=== PATIENT | male | born 1995 | race Caucasian/White ===

== ENCOUNTER 2016-07-16 10:53 | Emergency (ER) | payer BC, OTHER ==
[~2016-07-16] VITALS: Ht 167.6 cm; Wt 58.3 kg
[2016-07-16 10:58] VITALS: TEMP 36.8; Ht 167.6 cm; Wt 58.3 kg
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
[2016-07-16 11:38] LABS: BASO % 0.2 %; BASO ABS # 0.02 K/uL (0-0.2); COMPLETE YES; EOS % 0.8 %; HEMATOCRIT 43.1 % (42-52); IG% 0.3 %; LYMPH % 17.2 %; LYMPH ABS # 2.06 K/uL (1.2-3.4); MEAN CELL VOLUME 86.7 fL (80-100); MEAN CORPUSCULAR HGB CONC 35.7 g/dl (32-36); MEAN PLATELET VOLUME 9.3 fL (7.4-10.4); NEUT % 75.5 %; PLATELET COUNT 230 K/uL (130-400); RED BLOOD COUNT 4.97 M/uL (4.7-6.1); WHITE BLOOD COUNT 11.95 K/uL (4.8-10.8)
[2016-07-16] MEDS ORDERED: LORAZEPAM 0.5 MG TAB ONE (11:53)
[2016-07-16 11:57] LABS: BUN/CREATININE RATIO 17.2 (10-20); CALCIUM 9.4 mg/dl (8.5-10.1); CREATININE 0.98 mg/dl (0.60-1.40); POTASSIUM 3.6 mmol/L (3.5-5.1)
[2016-07-16] MEDS ORDERED: LORAZEPAM 0.5 MG TAB PO STA (12:00)
[2016-07-16 12:07] LABS: ALB/GLOB RATIO 1.3 (0.9-2); THYROID STIMULATING HORMONE 0.754 uIu/ml (0.300-4.500)
[2016-07-16 12:27] LABS: URINE APPEARANCE CLEAR (CLEAR); URINE BILIRUBIN NEG (NEG); URINE COLOR YELLOW; URINE NITRITE NEG (NEG); URINE PH 5.5 (4.5-7.5); URINE SPECIFIC GRAVITY 1.021 (1.000-1.030); UROBILINOGEN NEG (NEG)
[2016-07-16 12:30] LABS: MANUAL MICROSCOPIC REQUIRED? NO; REVIEW REQ? NO
[2016-07-16 12:55] LABS: BENZODIAZEPINE, URINE NEG (NEG); COCAINE,URINE NEG (NEG); PHENCYCLIDINE, URINE NEG (NEG)
[2016-07-16 13:36] VITALS: BP 124/62; PULSE 77; O2SAT 99
== END 2016-07-16 13:38 | disposition home or self-care (01) ==
LOC: C.EDB 10:54 → C.EDA 13:38
DX: F41.9 Anxiety disorder, unspecified (principal); Z87.891 Personal history of nicotine dependence; Z81.8 Family history of other mental and behavioral disorders

== ENCOUNTER 2017-03-13 17:53 | Emergency (ER) | payer OTHER ==
[~2017-03-13] VITALS: Ht 167.6 cm; Wt 59.7 kg
[2017-03-13 18:09] VITALS: Ht 167.6 cm; Wt 59.7 kg
--- NOTE | 2017-03-13 18:41 | DIAGNOSTIC IMAGING REPORT ---
LEFT FOURTH FINGER 3 VIEWS CLINICAL HISTORY: Left fourth finger pain status post trauma COMPARISON: None. DISCUSSION: There is fragmentation involving the ulnar aspect of the tuft of the distal phalanx no dislocations are visualized. IMPRESSION: Age-indeterminate fracture involving the ulnar aspect of the tuft of the distal phalanx. Electronically signed by: Db Wong M.D. 03/13/2017 6:40 PM Dictated Date/Time: 03/13/2017 6:39 PM
[2017-03-13 19:10] VITALS: BP 125/68; PULSE 84; TEMP 37; O2SAT 99
--- NOTE | 2017-03-14 01:35 | EMERGENCY ROOM VISIT NOTE ---
History First contact with patient: 18:15 Chief Complaint: FINGER PAIN Stated Complaint: INJURED LT FINGER -WC History of Present Illness The patient is a 21 year old male who presents to the Emergency Room with complaints of persistent left ring finger pain after accidentally hitting his finger with a sledge hammer at work 1 week ago. He was attempting to hit a piece of metal with a sledgehammer when it hit his finger. The patient did not seek any further evaluation at the time of injury, and reports persistent pain with movement. He rates his discomfort a 2 out of 10. He denies any pain extending into the hand, and denies any paresthesias or numbness. The patient is [id number]. Review of Systems 10 system review was performed and was negative except for pertinent positives and negatives as indicated in history of present illness Past Medical/Surgical History Medical Problems: (1) No known health problems Family History FH: depression Social History Smoking Status: Former Smoker Alcohol Use: occasionally Current/Historical Medications No Active Prescriptions or Reported Meds Physical Exam Vital Signs Date Time Temp Pulse Resp B/P (MAP) Pulse Ox O2 Delivery O2 Flow Rate FiO2 03/13/17 19:10 37.0 84 18 125/68 99 03/13/17 18:09 37.0 84 18 125/68 99 Room Air Physical Exam CONSTITUTIONAL: Healthy and well nourished. Alert and oriented X 3 with positive affect. HEENT: Normocephalic, atraumatic. Pupils equal, round and reactive. NECK: Full active range of motion without discomfort. MUSCULOSKELETAL: Examination of the left fourth finger shows mild edema without any evidence for prior open wounds or deformity. He has general tenderness to palpation about the DIP joint. He has no tenderness to palpation of the fingertip, and capillary refill is less than 2 seconds. The patient is able to flex and extend the finger against resistance without any obvious tendon weakness. INTEGUMENTARY: No rash or other significant dermatologic conditions noted. NEUROLOGIC: Left fourth fingertip is sensory intact. Medical Decision & Procedures ER Provider Diagnostic Interpretation: My interpretation of left fourth finger x-rays does not show any obvious fractures or dislocation at the DIP joint. There is an age-indeterminate avulsion along the ulnar aspect of the tuft that is nontender to palpation on exam. Radiologist report is as follows: LEFT FOURTH FINGER 3 VIEWS CLINICAL HISTORY: Left fourth finger pain status post trauma COMPARISON: None. DISCUSSION: There is fragmentation involving the ulnar aspect of the tuft of the distal phalanx no dislocations are visualized. IMPRESSION: Age-indeterminate fracture involving the ulnar aspect of the tuft of the distal phalanx. ED Course Patient history and physical exam were performed. Nurse's notes were reviewed. Vital signs were reviewed and were normal. The patient refused any analgesics. X-rays of the left fourth finger does not show any obvious injuries about the DIP joint where the patient has clinical tenderness to palpation. Radiologist does question an age indeterminate avulsion fracture over the ulnar distal tuft. Clinical exam does not show any tenderness to palpation over this region above therefore I suspect an old injury. Because the patient has persistent pain of the finger, I did suggest that he follow-up with his Worker's Compensation approved orthopedic surgeon for further reevaluation and management. The patient was happy with plan of care, voiced understanding of all discharge instructions, and denied any significant pain at the time of discharge. Medical Decision Medication Reconcilliation Current Medication List: was personally reviewed by me Blood Pressure Screening Patient's blood pressure: Normal blood pressure Impression Primary Impression: Contusion of left ring finger Additional Impression: Work related injury Departure Information Prescriptions No Active Prescriptions or Reported Meds Referrals No Doctor, Assigned (PCP) Patient Instructions My [facility] Problem Qualifiers
== END 2017-03-13 19:11 | disposition home or self-care (01) ==
LOC: C.EDB 17:54 → C.EDD 19:11
DX: S60.042A Contusion of left ring finger without damage to nail, initial encounter (principal); W22.8XXA Striking against or struck by other objects, initial encounter; Z87.891 Personal history of nicotine dependence; Y99.0 Civilian activity done for income or pay

== ENCOUNTER 2017-05-12 08:22 | Inpatient (IN) | payer BC, OTHER ==
[~2017-05-12] VITALS: Ht 167.6 cm; Wt 59.2 kg
[2017-05-12] MEDS ORDERED: IBUP-1050 PO (08:54)
[2017-05-12 08:58] LABS: BASO % 0.8 %; BASO ABS # 0.05 K/uL (0-0.2); COMPLETE YES; EOS % 2.8 %; HEMATOCRIT 45.1 % (42-52); IG% 0.6 %; LYMPH % 35.3 %; LYMPH ABS # 2.23 K/uL (1.2-3.4); MEAN CELL VOLUME 88.4 fL (80-100); MEAN CORPUSCULAR HEMOGLOBIN 31.6 pg (25-34); MEAN CORPUSCULAR HGB CONC 35.7 g/dl (32-36); MEAN PLATELET VOLUME 9.1 fL (7.4-10.4); MONO % 9.8 %; NEUT % 50.7 %; PLATELET COUNT 256 K/uL (130-400); WHITE BLOOD COUNT 6.32 K/uL (4.8-10.8)
[2017-05-12 09:07] LABS: URINE APPEARANCE CLEAR (CLEAR); URINE BILIRUBIN NEG (NEG); URINE COLOR YELLOW; URINE NITRITE NEG (NEG); URINE SPECIFIC GRAVITY 1.017 (1.000-1.030); UROBILINOGEN NEG (NEG)
[2017-05-12 09:09] LABS: MANUAL MICROSCOPIC REQUIRED? NO; REVIEW REQ? NO
[2017-05-12 09:31] LABS: BENZODIAZEPINE, URINE NEG (NEG); COCAINE,URINE NEG (NEG); PHENCYCLIDINE, URINE NEG (NEG)
[2017-05-12 09:33] LABS: BUN/CREATININE RATIO 19.1 (10-20); CALCIUM 9.8 mg/dl (8.5-10.1); CREATININE 0.82 mg/dl (0.60-1.40)
[2017-05-12 09:35] LABS: THYROID STIMULATING HORMONE 2.42 uIu/ml (0.300-4.500)
[2017-05-12 09:37] LABS: POTASSIUM 4.3 mmol/L (3.5-5.1)
[2017-05-12] MEDS ORDERED: SODIUM CHLORIDE 0.65% NA SOLN 45 ML (OCEAN) PRN (11:30)
[2017-05-12] MEDS ORDERED: hydrOXYzine HCL 25 MG TAB PO PRN ×2 (11:30)
[2017-05-12] MEDS ORDERED: ACETAMINOPHEN 325 MG TAB PO PRN (11:30)
[2017-05-12] MEDS ORDERED: LORAZEPAM 1 MG TAB PO PRN (11:30)
[2017-05-12] MEDS ORDERED: ALUMINUM/MAGNESIUM SUSP 30 ML UDC PO PRN (11:30)
[2017-05-12] MEDS ORDERED: MAGNESIUM HYDROXIDE SUSP 30 ML UDC PO PRN (11:30)
[2017-05-12] MEDS ORDERED: GABAPENTIN 600 MG TAB PO SCH (11:30)
[2017-05-12] MEDS ORDERED: BISMUTH SUBSALICYLATE PER ML OMNICELL CHARGE PO PRN (11:30)
[2017-05-12 11:44] VITALS: O2SAT 99
[2017-05-12 12:09] VITALS: BP 119/70; PULSE 74; TEMP 36.4; Ht 167.6 cm; Wt 59.2 kg
[2017-05-12] MEDS ORDERED: SERTRALINE HCL 50 MG TAB PO ONE (13:53)
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
[2017-05-12] MEDS ORDERED: GABAPENTIN 1200MG LOADING DOSE PO SCH (14:00)
--- NOTE | 2017-05-12 14:39 | EMERGENCY ROOM VISIT NOTE ---
History Report prepared by David: Wendie Arellano Under the Supervision of: Dr. Angel Cotton D.O. First contact with patient: 08:29 Chief Complaint: MENTAL HEALTH EVALUATION Stated Complaint: DEPRESSION History of Present Illness The patient is a 21 year old male who presents to the Emergency Room with complaints of worsening depression over the past several months. The patient states that he has a history of depression, but denies being on any daily medications for it. He states that he has seen therapists in the past, but denies any steady, consistent follow up for his depression. The patient states that he has been dealing with depression since his father committed suicide. He states that over the past few weeks he has been experiencing suicidal ideation, but denies any plan. The patient denies ever having these thoughts in the past. He denies any auditory or visual hallucinations. The patient states that yesterday his suicidal thoughts worsened, and states that he was worried about going to work today with the way he was feeling. He reports recent stressors at work and the holiday season as contributing factors to his depression. The patient reports some nausea today. Source of History: patient Onset: past several months Position: other (global) Quality: other (depression) Timing: worsening Associated Symptoms: + nausea Note: Associated symptoms: suicidal ideation Review of Systems See HPI for pertinent positives & negatives. A total of 10 systems reviewed and were otherwise negative. Past Medical & Surgical Medical Problems: (1) Alcohol use disorder (2) Depression (3) Major depressive disorder, single episode, severe without psychosis (4) No known health problems Social History Problems: (1) Alcohol abuse Family History FH: depression Social History Smoking Status: Former Smoker Alcohol Use: occasionally Marital Status: single Occupation Status: employed Current/Historical Medications Scheduled Ibuprofen (Advil), 200 MG PO DAILY Allergies Coded Allergies: No Known Allergies (Unverified , 05/12/17) Physical Exam Vital Signs Date Time Temp Pulse Resp B/P (MAP) Pulse Ox O2 Delivery O2 Flow Rate FiO2 05/12/17 08:23 36.5 85 18 132/76 100 Room Air Physical Exam GENERAL: Sitting up in bed, depressed, anxious alert, well appearing, well nourished, no distress, non-toxic EYE EXAM: normal conjunctiva. OROPHARYNX: no exudate, no erythema, lips, buccal mucosa, and tongue normal and mucous membranes are moist NECK: supple, no nuchal rigidity, no adenopathy, non-tender LUNGS: Clear to auscultation. Normal chest wall mechanics HEART: no murmurs, S1 normal and S2 normal ABDOMEN: abdomen soft, non-tender, normo-active bowel sounds, no masses, no rebound or guarding. BACK: Back is symmetrical on inspection and there is no deformity, no midline tenderness, no CVA tenderness. SKIN: no rashes and no bruising UPPER EXTREMITIES: upper extremities are grossly normal. LOWER EXTREMITIES: No pitting edema. NEURO EXAM: Normal sensorium, cranial nerves II-XII grossly intact, normal speech, no gross weakness of arms, no gross weakness of legs. PSYCH: Admits to suicidal thoughts without clear plan, denies homicidal thoughts or auditory or visual hallucinations. Medical Decision & Procedures Laboratory Results 05/12/17 08:45 Red Blood Count 5.10, Mean Corpuscular Volume 88.4, Mean Corpuscular Hemoglobin 31.6, Mean Corpuscular Hemoglobin Concent 35.7, Mean Platelet Volume 9.1, Neutrophils (%) (Auto) 50.7, Lymphocytes (%) (Auto) 35.3, Monocytes (%) (Auto) 9.8, Eosinophils (%) (Auto) 2.8, Basophils (%) (Auto) 0.8, Neutrophils # (Auto) 3.20, Lymphocytes # (Auto) 2.23, Monocytes # (Auto) 0.62, Eosinophils # (Auto) 0.18, Basophils # (Auto) 0.05 05/12/17 08:45 Test 05/12/17 08:45 05/12/17 08:46 05/12/17 08:50 White Blood Count 6.32 K/uL (4.8-10.8) Red Blood Count 5.10 M/uL (4.7-6.1) Hemoglobin 16.1 g/dL (14.0-18.0) Hematocrit 45.1 % (42-52) Mean Corpuscular Volume 88.4 fL (80-100) Mean Corpuscular Hemoglobin 31.6 pg (25-34) Mean Corpuscular Hemoglobin Concent 35.7 g/dl (32-36) Platelet Count 256 K/uL (130-400) Mean Platelet Volume 9.1 fL (7.4-10.4) Neutrophils (%) (Auto) 50.7 % Lymphocytes (%) (Auto) 35.3 % Monocytes (%) (Auto) 9.8 % Eosinophils (%) (Auto) 2.8 % Basophils (%) (Auto) 0.8 % Neutrophils # (Auto) 3.20 K/uL (1.4-6.5) Lymphocytes # (Auto) 2.23 K/uL (1.2-3.4) Monocytes # (Auto) 0.62 K/uL (0.11-0.59) Eosinophils # (Auto) 0.18 K/uL (0-0.5) Basophils # (Auto) 0.05 K/uL (0-0.2) RDW Standard Deviation 40.6 fL (36.4-46.3) RDW Coefficient of Variation 12.6 % (11.5-14.5) Immature Granulocyte % (Auto) 0.6 % Immature Granulocyte # (Auto) 0.04 K/uL (0.00-0.02) Anion Gap 12.0 mmol/L (3-11) Est Creatinine Clear Calc Drug Dose 122.5 ml/min Estimated GFR () 144.5 Estimated GFR (Non- 124.6 BUN/Creatinine Ratio 19.1 (10-20) Calcium Level 9.8 mg/dl (8.5-10.1) Total Bilirubin 0.3 mg/dl (0.2-1) Direct Bilirubin 0.1 mg/dl (0-0.2) Aspartate Amino Transf (AST/SGOT) 43 U/L (15-37) Alanine Aminotransferase (ALT/SGPT) 40 U/L (12-78) Alkaline Phosphatase 53 U/L (45-117) Total Protein 8.9 gm/dl (6.4-8.2) Albumin 4.7 gm/dl (3.4-5.0) Thyroid Stimulating Hormone (TSH) 2.420 uIu/ml (0.300-4.500) Ethyl Alcohol mg/dL < 3.0 mg/dl (0-3) Bedside Glucose 97 mg/dl (70-99) Urine Color YELLOW Urine Appearance CLEAR (CLEAR) Urine pH 6.0 (4.5-7.5) Urine Specific [place] 1.017 (1.000-1.030) Urine Protein NEG (NEG) Urine Glucose (UA) NEG (NEG) Urine Ketones NEG (NEG) Urine Occult Blood NEG (NEG) Urine Nitrite NEG (NEG) Urine Bilirubin NEG (NEG) Urine Urobilinogen NEG (NEG) Urine Leukocyte Esterase NEG (NEG) Urine Opiates Screen NEG (NEG) Urine Methadone, Qualitative NEG (NEG) Urine Barbiturates NEG (NEG) Urine Phencyclidine (PCP) Level NEG (NEG) Ur Amphetamine/Methamphetamine NEG (NEG) MDMA (Ecstasy) Screen NEG (NEG) Urine Benzodiazepines Screen NEG (NEG) Urine Cocaine Metabolite NEG (NEG) Urine Marijuana (THC) NEG (NEG) Laboratory results per my review. ED Course ED COURSE: Vital signs were reviewed and showed normal vitals The patients medical record was reviewed The above diagnostic studies were performed and reviewed. ED treatments and interventions as stated above. 0838: The patient was evaluated in room A6. A complete history and physical examination was performed. 1104: The patient has been accepted to [facility] for further psychological work up. Medical Decision Differential diagnosis: Etiologies such as mood disorder, infection, hypoglycemia, electrolyte abnormalities, cardiac sources, intracerebral event, toxicologic, neurologic, as well as others were entertained. Patient is a 21-year-old male who presents to ER for depression with thoughts of suicide. He has no clear plan at this time. Denies any auditory or visual hallucinations. Patient has no other complaints. CBC all BMP LFTs, bilirubin and TSH is normal. Alcohol is negative. UA was negative. Tox is negative. Evaluated by our psychiatric liaison. Evaluated by 3 S. Patient was admitted for suicidal thoughts with severe depression. Medication Reconcilliation Current Medication List: was personally reviewed by me Blood Pressure Screening Patient's blood pressure: Normal blood pressure Blood pressure disposition: Did not require urgent referral Impression Primary Impression: Mood disorder Additional Impression: Depression Scribe Attestation The scribe's documentation has been prepared under my direction and personally reviewed by me in its entirety. I confirm that the note above accurately reflects all work, treatment, procedures, and medical decision making performed by me. Departure Information Dispostion Mental Health Acute Care Referrals No Doctor, Assigned (PCP) Problem Qualifiers Additional Impression: Depression Depression Type: unspecified Qualified Codes: F32.9 - Major depressive disorder, single episode, unspecified
[2017-05-12 16:05] VITALS: BP 137/83; PULSE 94; TEMP 36.8
[2017-05-12] MEDS ORDERED: NURSING VERBAL MED ORDER ONE (18:00)
[2017-05-12] MEDS: NICOTINE POLACRILEX 2 MG GUM MT PRN ×2 (18:35→21:42)
[2017-05-12 20:44] VITALS: BP 126/75; PULSE 73; TEMP 37
[2017-05-12] MEDS: GABAPENTIN 600MG Q6H DOSE PO SCH (20:45)
[2017-05-13] MEDS: GABAPENTIN 600MG Q6H DOSE PO SCH (02:09)
[2017-05-13 06:54] VITALS: BP_SYST 113; BP_SYST 114; BP_DIAS 66; BP_DIAS 74; PULSE 57; PULSE 59; TEMP 36.5
[2017-05-13 08:34] VITALS: BP 121/73; PULSE 70
[2017-05-13] MEDS: IBUPROFEN 200 MG TAB PO SCH (08:39)
[2017-05-13] MEDS: SERTRALINE HCL 50 MG TAB PO SCH (08:39)
[2017-05-13] MEDS: THIAMINE HCL 100 MG TAB PO SCH (08:39)
[2017-05-13] MEDS: MULTIVITAMIN TAB PO SCH (08:39)
[2017-05-13] MEDS: NICOTINE POLACRILEX 2 MG GUM MT PRN ×5 (09:54→21:00)
--- NOTE | 2017-05-13 11:25 | Psychiatric Progress Notes ---
Progress Note Date of Service May 13, 2017. Interval History Alejandro Ramires is a 21-year-old male who currently lives in [place] with his mother and sister. He presents to the emergency department today with complaints of severe depression occurring in the context of his brother's suicide 2 years ago. He is admitted voluntarily. Chief Complaint "Definitely better". Subjective Patient was seen & assessed interval progress reviewed with Nursing. Staff report he is attending and participating in groups, has not scored on AWSS, and has been talking about his grief over his brother's . Today the patient reports mood is improved, rates it a 5 or 6 out of 10. He continues to have suicidal thoughts, "they're lingering," but are less intense than on admission. He is finding groups helpful and has been talking about his grief and the loss of his brother. He is willing to follow up with a therapist and psychiatrist. He admits his drinking is out of control and says he is willing to consider IOP or AA. He denies withdrawal symptoms. He had anxiety when initially admitted but feels more comfortable now. He is tolerating sertraline well and denies side effects. He slept well and is eating well. He had a meeting with his mother and sister today and says it was helpful as he was able to "get it all out there, and talk about how to fix all this." They talked about improving communication and being able to ask for help, which they all struggle with. He wants to stop drinking, and gave his mother permission to remove all alcohol from the home. They discussed options for substance abuse treatment, but he is concerned about having to miss work as he works full-time as a alarm mechanic. His mother confirmed that he does not have access to guns at home. Sleep Information Total Hours of Sleep: 6.00 Meal Information Percent of Breakfast Consumed: 100 Percent of Lunch Consumed: 100 Percent of Dinner Consumed: 95 Mental Status Exam During interview pt is: alert and oriented, cooperative Appearance: appropriately dressed, appropriately groomed Eye contact is: good Motor behavior is: steady gait & station, no abnormal motor movements, tremor ( mild) Speech: normal in rate, rhythm & volume Affect: depressed, blunted Mood is: other ("better") Thought process: goal directed, linear, logical, clear, coherent Thought content: reality based without delusions Suicidal thought are: present, Plan: denied, Intent: denied Homicidal thoughts are: denied Hallucinations: denies auditory, denies visual Cognition: memory grossly intact, attention grossly intact, language grossly intact Intelligence estimated to be: average Insight: impaired Judgement: impaired Impression 21-year-old gentleman who presents to the emergency department with worsening depression and suicidality. He denies other stressors other than his brother's suicide 2 years ago. He has never had a trial of an SSRI so was started on sertraline on admission. He is being treated/monitored for alcohol withdrawal, and referred for outpatient follow-up with a therapist and psychiatrist. We will recommend abstinence and he will likely need outpatient substance use counseling as well. At this time however he requires inpatient mental health treatment due to the severity of his condition and the risk for self-harm if discharged. Plan (1) Major depressive disorder, single episode, severe without psychosis 05/12 - Start Zoloft 25 mg daily increasing to 50 mg tomorrow - Every 15 minute checks for safety - Will need psychiatric aftercare - Family meeting - Assist the patient to learn and utilize healthy coping strategies - Encourage participation in group and individual counseling 05/13 - Tolerating sertraline well, increased to 50 mg daily today. - Family meeting held with mother and sister who are supportive. (2) Alcohol use disorder 05/12 - The patient's AUDIT score suggests problematic drinking (Zone III WHO). Brief intervention was offered and accepted Intervention (if performed) was greater than 5 min in length. Brief interventions include: 1. Assess Readiness to Quit, 2. Advise: Help Patient to Reduce or Abstain from Alcohol, 3. Agree: Set Specific, Feasible Goals, 4. Assist: Anticipate barriers, Problem-Solving Solutions. Social work to 5. Arrange: Referrals to appropriate treatment. Summary of intervention: The patient is in precontemplation stage with regards to transtheoretical model of change. The patient is advised to decrease alcohol consumption due to depressant effects and risk of interactions with prescription medications. The patient agreed to reducing/abstaining and will be provided with recovery materials to continue to education self on how to cope with their condition without drinking. - AWSS protocol - Will need outpatient substance counseling 05/13 - Complete gabapentin taper, but discontinue AWSS and Ativan when necessary as he is not scoring and denies withdrawal symptoms. - Encourage him to consider substance abuse treatment, either IOP or AA. Discharge / Aftercare Planning Primary Care Physician: Name: Henry Schmitt Therapist: Name: Uriel Tellez Visit Code E&M Code: 45495 Inventory Assets Strengths: Willingness to engage in treatment, employed full-time Needs: To abstain from alcohol Risk Factors Assessment Male: Yes : Yes /single/: Yes Higher / Fall in social status: No Health problems: No Mental Health Diagnoses: Yes Substance use disorders: Yes Previous attempt: No Family history of suicide: Yes Previous psychiatric stay: No Protective Factors Assessment Mu-Ism beliefs: No : No Responsible for young children: No Employed: No Stable relationships: No Supportive family: Yes Data Vital Signs Last 24 Hrs: Date Time Temp Pulse Resp B/P (MAP) Pulse Ox O2 Delivery O2 Flow Rate FiO2 05/13/17 08:34 70 121/73 05/13/17 06:54 36.5 59 16 114/66 57 113/74 05/12/17 20:44 37.0 73 16 126/75 05/12/17 16:05 36.8 94 18 137/83 05/12/17 12:09 36.4 74 18 119/70 05/12/17 11:44 77 18 127/70 99 Meds Administered Last 24 Hrs: Meds Administered (Past 24Hrs) Medications (Trade) Dose Ordered Sig/Jeffery Route Start Time Stop Time Status Last Admin Dose Admin Ibuprofen (Advil Tab) 200 mg DAILY PO 05/13/17 09:00 06/12/17 08:59 05/13/17 08:39 200 MG Gabapentin (Neurontin Tab) 1,200 mg TODAY@1400 PO 05/12/17 14:00 05/12/17 14:01 DC 05/12/17 13:37 1,200 MG Gabapentin (Neurontin Tab) 600 mg Q6H PO 05/12/17 20:00 05/13/17 02:01 DC 05/13/17 02:09 600 MG Sertraline HCl (Zoloft Tab) 50 mg QAM PO 05/13/17 09:00 06/12/17 08:59 05/13/17 08:39 50 MG Sertraline HCl (Zoloft Tab) 25 mg 1353 ONCE PO 05/12/17 13:53 05/12/17 13:56 DC 05/12/17 14:40 25 MG Thiamine HCl (Vitamin B-1 Tab) 100 mg QAM PO 05/13/17 09:00 06/12/17 08:59 05/13/17 08:39 100 MG Multivitamins (Multivitamin Tab) 1 tab QAM PO 05/13/17 09:00 06/12/17 08:59 05/13/17 08:39 1 TAB Nicotine Polacrilex (Nicorette 2MG Gum) 1 piece Q2H PRN MT 05/12/17 18:30 06/11/17 18:29 05/13/17 09:54 1 PIECE
[2017-05-13] MEDS: GABAPENTIN 600MG Q8H DOSE PO SCH ×2 (13:42→21:38)
[2017-05-14] MEDS: GABAPENTIN 600MG Q8H DOSE PO SCH (06:13)
[2017-05-14 08:05] VITALS: BP_SYST 116; BP_SYST 120; BP_DIAS 71; BP_DIAS 77; PULSE 72; PULSE 84; TEMP 36.8
[2017-05-14] MEDS: IBUPROFEN 200 MG TAB PO SCH (09:02)
[2017-05-14] MEDS: THIAMINE HCL 100 MG TAB PO SCH (09:02)
[2017-05-14] MEDS: MULTIVITAMIN TAB PO SCH (09:02)
[2017-05-14] MEDS: SERTRALINE HCL 50 MG TAB PO SCH (09:02)
[2017-05-14] MEDS: NICOTINE POLACRILEX 2 MG GUM MT PRN ×5 (09:16→20:02)
--- NOTE | 2017-05-14 09:36 | Psychiatric Progress Notes ---
Progress Note Date of Service May 14, 2017. Interval History Alejandro Ramires is a 21-year-old male who currently lives in [place] with his mother and sister. He presents to the emergency department today with complaints of severe depression occurring in the context of his brother's suicide 2 years ago. He is admitted voluntarily. Chief Complaint "Definitely getting better". Subjective Patient was seen & assessed interval progress reviewed with Treatment Team. Staff report he has been going to groups and participating appropriately. Today , he reports that his mood continues to improve a little bit each day, and he thinks that it is helping to open up in groups and talk about his stressors. He continues to have suicidal thoughts on a daily basis, but they are decreasing , and he feels safe in the hospital. He says the suicidal thoughts have been occurring off and on for the past year, and he has thought of multiple ways to end his life. He does not have guns at home, and his mother keeps prescription medications locked up in a safe. He is working on a safety plan, and also thinking about going to AA. He states his PCP talk to him about AA and encouraged him to go, and we spent some time discussing this today as well. He denies side effects to his medication and denies withdrawal symptoms. Sleep Information Total Hours of Sleep: 5.00 Meal Information Percent of Breakfast Consumed: 100 Percent of Lunch Consumed: 100 Percent of Dinner Consumed: 100 Mental Status Exam During interview pt is: alert and oriented, cooperative Appearance: appropriately dressed, appropriately groomed Eye contact is: good Motor behavior is: steady gait & station, no abnormal motor movements, tremor ( mild) Speech: normal in rate, rhythm & volume Affect: depressed, blunted Mood is: other ("getting better") Thought process: goal directed, linear, logical, clear, coherent Thought content: reality based without delusions Suicidal thought are: present, Plan: denied, Intent: denied Homicidal thoughts are: denied Hallucinations: denies auditory, denies visual Cognition: memory grossly intact, attention grossly intact, language grossly intact Intelligence estimated to be: average Insight: fair Judgement: fair Impression 21-year-old gentleman who presented to the emergency department with worsening depression and suicidality. His primary stressor is his brother's suicide 2 years ago. He has never had a trial of an SSRI so was started on sertraline on admission. He is being treated/monitored for alcohol withdrawal, and referred for outpatient follow-up with a therapist and psychiatrist. We will recommend abstinence and outpatient substance abuse treatment. He requires continued inpatient mental health treatment due to ongoing suicidal thoughts, the severity of his condition and the risk for self-harm if discharged. Plan (1) Major depressive disorder, single episode, severe without psychosis 05/12 - Start Zoloft 25 mg daily increasing to 50 mg tomorrow - Every 15 minute checks for safety - Will need psychiatric aftercare - Family meeting - Assist the patient to learn and utilize healthy coping strategies - Encourage participation in group and individual counseling 05/13 - Tolerating sertraline well, increased to 50 mg daily today. - Family meeting held with mother and sister who are supportive. 05/14 - Continue sertraline, and refer for outpatient therapy and psychiatric care. - Work on discharge safety plan. Continue to attend and participate in groups and therapy. (2) Alcohol use disorder 05/12 - The patient's AUDIT score suggests problematic drinking (Zone III WHO). Brief intervention was offered and accepted Intervention (if performed) was greater than 5 min in length. Brief interventions include: 1. Assess Readiness to Quit, 2. Advise: Help Patient to Reduce or Abstain from Alcohol, 3. Agree: Set Specific, Feasible Goals, 4. Assist: Anticipate barriers, Problem-Solving Solutions. Social work to 5. Arrange: Referrals to appropriate treatment. Summary of intervention: The patient is in precontemplation stage with regards to transtheoretical model of change. The patient is advised to decrease alcohol consumption due to depressant effects and risk of interactions with prescription medications. The patient agreed to reducing/abstaining and will be provided with recovery materials to continue to education self on how to cope with their condition without drinking. - AWSS protocol - Will need outpatient substance counseling 05/13 - Complete gabapentin taper, but discontinue AWSS and Ativan when necessary as he is not scoring and denies withdrawal symptoms. - Encourage him to consider substance abuse treatment, either IOP or AA. 05/14 - The patient does not want to pursue IOP or inpatient rehabilitation, but is considering AA. We should continued to discuss this with him throughout his stay, and provide him with a list of local meetings. Discharge / Aftercare Planning [facility]: As needed Psychiatrist: Name: Uriel Matos Date of Appointment: May 20, 2017 Therapist: Name: Uriel ROJAS Visit Code E&M Code: 38329 Inventory Assets Strengths: Willingness to engage in treatment, employed full-time Needs: To abstain from alcohol Risk Factors Assessment Male: Yes : Yes /single/: Yes Higher / Fall in social status: No Health problems: No Mental Health Diagnoses: Yes Substance use disorders: Yes Previous attempt: No Family history of suicide: Yes Previous psychiatric stay: No Protective Factors Assessment Moravian beliefs: No : No Responsible for young children: No Employed: No Stable relationships: No Supportive family: Yes Data Vital Signs Last 24 Hrs: Date Time Temp Pulse Resp B/P (MAP) Pulse Ox O2 Delivery O2 Flow Rate FiO2 05/14/17 08:05 36.8 72 16 116/77 84 120/71 Meds Administered Last 24 Hrs: Meds Administered (Past 24Hrs) Medications (Trade) Dose Ordered Sig/Jeffery Route Start Time Stop Time Status Last Admin Dose Admin Ibuprofen (Advil Tab) 200 mg DAILY PO 05/13/17 09:00 06/12/17 08:59 05/14/17 09:02 200 MG Gabapentin (Neurontin Tab) 1,200 mg TODAY@1400 PO 05/12/17 14:00 05/12/17 14:01 DC 05/12/17 13:37 1,200 MG Gabapentin (Neurontin Tab) 600 mg Q6H PO 05/12/17 20:00 05/13/17 02:01 DC 05/13/17 02:09 600 MG Gabapentin (Neurontin Tab) 600 mg Q8H PO 05/13/17 14:00 05/14/17 06:01 DC 05/14/17 06:13 600 MG Sertraline HCl (Zoloft Tab) 50 mg QAM PO 05/13/17 09:00 06/12/17 08:59 05/14/17 09:02 50 MG Sertraline HCl (Zoloft Tab) 25 mg 1353 ONCE PO 05/12/17 13:53 05/12/17 13:56 DC 05/12/17 14:40 25 MG Thiamine HCl (Vitamin B-1 Tab) 100 mg QAM PO 05/13/17 09:00 06/12/17 08:59 05/14/17 09:02 100 MG Multivitamins (Multivitamin Tab) 1 tab QAM PO 05/13/17 09:00 06/12/17 08:59 05/14/17 09:02 1 TAB Nicotine Polacrilex (Nicorette 2MG Gum) 1 piece Q2H PRN MT 05/12/17 18:30 06/11/17 18:29 05/14/17 09:16 1 PIECE
[2017-05-14] MEDS: GABAPENTIN 600MG Q12H DOSE PO SCH (17:51)
[2017-05-15] MEDS: GABAPENTIN 600MG Q12H DOSE PO SCH (06:11)
[2017-05-15 06:34] VITALS: BP_SYST 104; BP_SYST 114; BP_DIAS 63; BP_DIAS 65; PULSE 57; PULSE 80; TEMP 36.5
--- NOTE | 2017-05-15 09:46 | Psychiatric Progress Notes ---
Progress Note Date of Service May 15, 2017. Interval History Alejandro Ramires is a 21-year-old male who currently lives in [place] with his mother and sister. He presented to the emergency department with complaints of severe depression occurring in the context of his brother's suicide 2 years ago. He was admitted voluntarily. Chief Complaint "I am working through some things". Subjective Patient was seen & assessed interval progress reviewed with Nursing He was on AWSS as he did not score he was taken off but remains on a neurontin taper. He is declining inpatient rehab or IOP. He is willing to go to AA He has appt set up with DR Matos next week, and therapist at [facility]. The patient reports he is doing "okay....working through some things" He denies s/sx of alcohol withdrawal, still focussed on AA declining inpatinet or IOP. He states is mood is "okay" rating at 5/10, denying overt SI, intention or plan. He cannot articulate a safety plan, and states that he is trying to work on greif and beginning to talk about that as that was one of his main triggers prior to hospitalization for SI. He denies Side effects to sertraline today is day 3. He agrees with provider's request that he stay through day 4 of dosing tomorrow to assure he is tolerating this med, and to work on formal safety planning. Review of Systems He has intact appetite, sleep and denies pain. He denies side effects from medications Sleep Information Total Hours of Sleep: 5.50 Meal Information Percent of Breakfast Consumed: 100 Percent of Lunch Consumed: 100 Percent of Dinner Consumed: 100 Mental Status Exam During interview pt is: alert and oriented, cooperative Appearance: appropriately dressed, appropriately groomed Eye contact is: good Motor behavior is: steady gait & station, no abnormal motor movements Speech: normal in rate, rhythm & volume Affect: blunted Mood is: other ("okay") Thought process: goal directed, linear, logical, clear, coherent Thought content: reality based without delusions Suicidal thought are: present, Plan: denied, Intent: denied Homicidal thoughts are: denied Hallucinations: denies auditory, denies visual Cognition: memory grossly intact, attention grossly intact, language grossly intact Intelligence estimated to be: average Insight: fair Judgement: fair Impression 21-year-old gentleman who presented to the emergency department with worsening depression and suicidality. His primary stressor is his brother's suicide 2 years ago. He has never had a trial of an SSRI so was started on sertraline on admission. He is being treated/monitored for alcohol withdrawal, and referred for outpatient follow-up with a therapist and psychiatrist. We will recommend abstinence and outpatient substance abuse treatment. He requires continued inpatient mental health treatment due to ongoing suicidal thoughts, the severity of his condition and the risk for self-harm if discharged. Plan (1) Major depressive disorder, single episode, severe without psychosis 05/12 - Start Zoloft 25 mg daily increasing to 50 mg tomorrow - Every 15 minute checks for safety - Will need psychiatric aftercare - Family meeting - Assist the patient to learn and utilize healthy coping strategies - Encourage participation in group and individual counseling 05/13 - Tolerating sertraline well, increased to 50 mg daily today. - Family meeting held with mother and sister who are supportive. 05/14 and 05/15c - Continue sertraline, and refer for outpatient therapy and psychiatric care. - Work on discharge safety plan. Continue to attend and participate in groups and therapy. (2) Alcohol use disorder 05/12 - The patient's AUDIT score suggests problematic drinking (Zone III WHO). Brief intervention was offered and accepted Intervention (if performed) was greater than 5 min in length. Brief interventions include: 1. Assess Readiness to Quit, 2. Advise: Help Patient to Reduce or Abstain from Alcohol, 3. Agree: Set Specific, Feasible Goals, 4. Assist: Anticipate barriers, Problem-Solving Solutions. Social work to 5. Arrange: Referrals to appropriate treatment. Summary of intervention: The patient is in precontemplation stage with regards to transtheoretical model of change. The patient is advised to decrease alcohol consumption due to depressant effects and risk of interactions with prescription medications. The patient agreed to reducing/abstaining and will be provided with recovery materials to continue to education self on how to cope with their condition without drinking. - AWSS protocol - Will need outpatient substance counseling 05/13 - Complete gabapentin taper, but discontinue AWSS and Ativan when necessary as he is not scoring and denies withdrawal symptoms. - Encourage him to consider substance abuse treatment, either IOP or AA. 05/14 and 05/15 - The patient does not want to pursue IOP or inpatient rehabilitation, but is considering AA. We should continued to discuss this with him throughout his stay, and provide him with a list of local meetings. Discharge / Aftercare Planning Primary Care Physician: Name: Henry Duran Appointment Notes: As needed Psychiatrist: Name: Uriel Matos Date of Appointment: May 20, 2017 Time of Appointment: 3:15 Appointment Notes: 3:15 for registration, will be seen at 3:45 [facility] Appointment Notes: Will be scheduled when you have appointment with Dr. Matos. Visit Code E&M Code: 71802 Inventory Assets Strengths: Willingness to engage in treatment, employed full-time Needs: To abstain from alcohol Risk Factors Assessment Male: Yes : Yes /single/: Yes Higher / Fall in social status: No Health problems: No Mental Health Diagnoses: Yes Substance use disorders: Yes Previous attempt: No Family history of suicide: Yes Previous psychiatric stay: No Protective Factors Assessment Spiritism beliefs: No : No Responsible for young children: No Employed: No Stable relationships: No Supportive family: Yes Data Vital Signs Last 24 Hrs: Date Time Temp Pulse Resp B/P (MAP) Pulse Ox O2 Delivery O2 Flow Rate FiO2 05/15/17 06:34 36.5 57 16 104/65 80 114/63 Meds Administered Last 24 Hrs: Meds Administered (Past 24Hrs) Medications (Trade) Dose Ordered Sig/Jeffery Route Start Time Stop Time Status Last Admin Dose Admin Ibuprofen (Advil Tab) 200 mg DAILY PO 05/13/17 09:00 06/12/17 08:59 05/14/17 09:02 200 MG Gabapentin (Neurontin Tab) 600 mg Q8H PO 05/13/17 14:00 05/14/17 06:01 DC 05/14/17 06:13 600 MG Gabapentin (Neurontin Tab) 600 mg Q12H PO 05/14/17 18:00 05/15/17 06:01 DC 05/15/17 06:11 600 MG Sertraline HCl (Zoloft Tab) 50 mg QAM PO 05/13/17 09:00 06/12/17 08:59 05/14/17 09:02 50 MG Thiamine HCl (Vitamin B-1 Tab) 100 mg QAM PO 05/13/17 09:00 06/12/17 08:59 05/14/17 09:02 100 MG Multivitamins (Multivitamin Tab) 1 tab QAM PO 05/13/17 09:00 06/12/17 08:59 05/14/17 09:02 1 TAB
[2017-05-15] MEDS: SERTRALINE HCL 50 MG TAB PO SCH (10:23)
[2017-05-15] MEDS: MULTIVITAMIN TAB PO SCH (10:23)
[2017-05-15] MEDS: IBUPROFEN 200 MG TAB PO SCH (10:23)
[2017-05-15] MEDS: THIAMINE HCL 100 MG TAB PO SCH (10:23)
[2017-05-15] MEDS: NICOTINE POLACRILEX 2 MG GUM MT PRN ×6 (10:23→22:05)
[2017-05-16] MEDS ORDERED: GABAPENTIN 600MG X1 DOSE PO SCH (06:00)
[2017-05-16 06:48] VITALS: BP_SYST 113; BP_SYST 99; BP_DIAS 58; BP_DIAS 78; PULSE 66; PULSE 67; TEMP 36.6
[2017-05-16] MEDS: IBUPROFEN 200 MG TAB PO SCH (08:35)
[2017-05-16] MEDS: SERTRALINE HCL 50 MG TAB PO SCH (08:35)
[2017-05-16] MEDS: THIAMINE HCL 100 MG TAB PO SCH (08:35)
[2017-05-16] MEDS: MULTIVITAMIN TAB PO SCH (08:35)
[2017-05-16] MEDS: NICOTINE POLACRILEX 2 MG GUM MT PRN ×6 (08:42→22:21)
[2017-05-16] MEDS ORDERED: ZLF50 PO (10:45)
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
--- NOTE | 2017-05-16 13:41 | Psychiatric Progress Notes ---
Progress Note Date of Service May 16, 2017. Interval History Alejandro Ramires is a 21-year-old male who currently lives in [place] with his mother and sister. He presented to the emergency department with complaints of severe depression occurring in the context of his brother's suicide 2 years ago. He was admitted voluntarily. Chief Complaint "I thought I was ready to go, but I am not". Subjective Patient was seen & assessed interval progress reviewed with nursing. Of note initial plan was for discharge today and we completed the discharge process. However see note below for inital assessment and the "Follow-UP" portion for the process by which we determined to have patient stay one additional day. The patient was seen today. He is cooperative with the assessment. He states he is feeling "better". He notes that the current reserve status that we are seeing here is his baseline. He does state he is feeling less depressed rating his mood at a 5-6 out of 10 (10 best/euthymic, 0 most depressed). She denies suicidal ideations intention or plan. He states he is future oriented to get back to work and talk to his father. He has some anxiety about others asking about his hospitalization as well as telling his father what has happened "I don 't want to disappoint him." We role-played today in this evaluation about ways for him to answer people's questions while keeping limits and ways to have conversation with his father. He stated this intervention was helpful. He is taking is Zoloft 50 mg and denies side effects at this time. He is able to verbalize a safety plan if became overwhelmed. He is able to verbalize his intention to abstain from alcohol. That his mother has removed all alcohol from the home. He stated his intention to attend an AA meeting. We discussed home groups and getting a sponsor. He states he is motivated to consider these things as well as to attend his psychiatry appointment on the and to establish appointments with therapist at that time. He denies questions or concerns and requests discharge today and we agree that this is appropriate. He declines resources for tobacco cessation and is precontemplational. Review of symptoms: He denies any physical concerns today other than feeling slightly nervous as noted above he denies psychological concerns today. Initial plan was for discharge. However when nursing was discussing discharge patient was quiet, reserved and tearful. He is concerned "things will return to the same when I leave, my family is visiting from out of town, I have no place to retreat to, and I don't have any friends any more" He is concerned about relapse and then feeling depressed and hopeless like nothing has changed. He is anxious He is worried that if he feels this way again he will lose the hope he has gained and be at risk for wanting to keep drinking and possibly even . We discussed modifiable factors and [facility]. He notes his family leaves tomorrow and it will just be his mother and sister whom he can be around with more ease and speak plainly to. He would feel less need to flee from the crowded home which staying in would make it less likely to relapse to drinking. In discussion of his outpatient isolation and options for connecting he notes he is willing to consider grief groups and would likely want his mother or sister to go with him. He would need to invite them and has anxiety about that conversation. His mother is unavailable for that type of time/conversation today but would be tomorrow after extended family leaves the area. He asks that staff facilitate that discussion with he and his mother at time of discharge as he is fearful that if it does not happen he may close up and not follow-through due to the discomfort of talking, the discomfort of going. We agreed that these are very reasonable and modifiable risks that time and mother's ability to present, and use of staff can mitigate for a more stable situation at discharge. Sleep Information Total Hours of Sleep: 6.50 Meal Information Percent of Breakfast Consumed: 100 Percent of Lunch Consumed: 90 Percent of Dinner Consumed: 95 Mental Status Exam During interview pt is: alert and oriented, cooperative Appearance: appropriately dressed, appropriately groomed Eye contact is: good Motor behavior is: steady gait & station, no abnormal motor movements Speech: normal in rate, rhythm & volume Affect: blunted Mood is: other ("okay" but on second interview he is tearful and anxious) Thought process: goal directed, linear, logical, clear, coherent Thought content: reality based without delusions Suicidal thought are: present, Plan: denied, Intent: denied Homicidal thoughts are: denied Hallucinations: denies auditory, denies visual Cognition: memory grossly intact, attention grossly intact, language grossly intact Intelligence estimated to be: average Insight: fair Judgement: fair Mental Examination During interview pt is: alert and oriented, cooperative Appearance: appropriately dressed, appropriately groomed Eye contact is: good Motor behavior is: steady gait & station, tremor (mild) Speech: normal in rate, rhythm & volume Affect: depressed, flat Mood is: depressed Thought process: goal directed Thought content: reality based without delusions Suicidal thought are: present, Plan: denied, Intent: denied Homicidal thoughts are: denied Hallucinations: denies auditory, denies visual Cognition: memory grossly intact, attention grossly intact, language grossly intact Intelligence estimated to be: average Insight: impaired Judgement: impaired Impression 21-year-old gentleman who presented to the emergency department with worsening depression and suicidality. His primary stressor is his brother's suicide 2 years ago. He has never had a trial of an SSRI so was started on sertraline on admission. He is being treated/monitored for alcohol withdrawal, and referred for outpatient follow-up with a therapist and psychiatrist. We will recommend abstinence and outpatient substance abuse treatment. He requires continued inpatient mental health treatment due to ongoing suicidal thoughts, the severity of his condition and the risk for self-harm if discharged. Plan (1) Major depressive disorder, single episode, severe without psychosis 05/12 - Start Zoloft 25 mg daily increasing to 50 mg tomorrow - Every 15 minute checks for safety - Will need psychiatric aftercare - Family meeting - Assist the patient to learn and utilize healthy coping strategies - Encourage participation in group and individual counseling 05/13 - Tolerating sertraline well, increased to 50 mg daily today. - Family meeting held with mother and sister who are supportive. 05/14 and 05/15 - Continue sertraline, and refer for outpatient therapy and psychiatric care. - Work on discharge safety plan. Continue to attend and participate in groups and therapy. 05/16/17 - continue plan as above, role played crucial conversations with father, discussed h ow to handle other's questions about his stay, and deferred discharge for 05/17/17 due to crowded home situation with family visiting that would raise risk of isolation, alcohol relapse and risk losing the sobriety and hope and safety that he has gained inpatient. We will arrange discharge meeting with his mother for 05/17/17 to discuss aftercare, grief groups (2) Alcohol use disorder 05/12 - The patient's AUDIT score suggests problematic drinking (Zone III WHO). Brief intervention was offered and accepted Intervention (if performed) was greater than 5 min in length. Brief interventions include: 1. Assess Readiness to Quit, 2. Advise: Help Patient to Reduce or Abstain from Alcohol, 3. Agree: Set Specific, Feasible Goals, 4. Assist: Anticipate barriers, Problem-Solving Solutions. Social work to 5. Arrange: Referrals to appropriate treatment. Summary of intervention: The patient is in precontemplation stage with regards to transtheoretical model of change. The patient is advised to decrease alcohol consumption due to depressant effects and risk of interactions with prescription medications. The patient agreed to reducing/abstaining and will be provided with recovery materials to continue to education self on how to cope with their condition without drinking. - AWSS protocol - Will need outpatient substance counseling 05/13 - Complete gabapentin taper, but discontinue AWSS and Ativan when necessary as he is not scoring and denies withdrawal symptoms. - Encourage him to consider substance abuse treatment, either IOP or AA. 05/14 and 05/15 - The patient does not want to pursue IOP or inpatient rehabilitation, but is considering AA. We should continued to discuss this with him throughout his stay, and provide him with a list of local meetings. Discharge / Aftercare Planning [facility]: As needed Psychiatrist: Name: Uriel Matos Date of Appointment: May 20, 2017 Time of Appointment: 3:15 Appointment Notes: 3:15 for registration, will be seen at 3:45 [facility] Appointment Notes: Will be scheduled when you have appointment with Dr. Matos. Visit Code E&M Code: 69504 Inventory Assets Strengths: Willingness to engage in treatment, employed full-time Needs: To abstain from alcohol Risk Factors Assessment Male: Yes : Yes /single/: Yes Higher / Fall in social status: No Health problems: No Mental Health Diagnoses: Yes Substance use disorders: Yes Previous attempt: No Family history of suicide: Yes Previous psychiatric stay: No Protective Factors Assessment Baptism beliefs: No : No Responsible for young children: No Employed: No Stable relationships: No Supportive family: Yes Data Vital Signs Last 24 Hrs: Date Time Temp Pulse Resp B/P (MAP) Pulse Ox O2 Delivery O2 Flow Rate FiO2 05/16/17 06:48 36.6 67 16 99/58 66 113/78 Meds Administered Last 24 Hrs: Meds Administered (Past 24Hrs) Medications (Trade) Dose Ordered Sig/Jeffery Route Start Time Stop Time Status Last Admin Dose Admin Gabapentin (Neurontin Tab) 600 mg Q12H PO 05/14/17 18:00 05/15/17 06:01 DC 05/15/17 06:11 600 MG Gabapentin (Neurontin Tab) 600 mg Q24H PO 05/16/17 06:00 05/16/17 06:01 DC 05/16/17 08:34 600 MG
[2017-05-17 07:00] VITALS: BP_SYST 104; BP_SYST 122; BP_DIAS 62; BP_DIAS 69; PULSE 55; PULSE 79; TEMP 36.4
[2017-05-17] MEDS: MULTIVITAMIN TAB PO SCH (08:55)
[2017-05-17] MEDS: IBUPROFEN 200 MG TAB PO SCH (08:55)
[2017-05-17] MEDS: SERTRALINE HCL 50 MG TAB PO SCH (08:56)
[2017-05-17] MEDS: THIAMINE HCL 100 MG TAB PO SCH (08:56)
[2017-05-17] MEDS: NICOTINE POLACRILEX 2 MG GUM MT PRN ×2 (09:18→11:41)
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
== END 2017-05-17 15:00 | disposition home or self-care (01) | DRG 885 ==
LOC: C.EDB 08:23 → C.MHU 11:21
PROVIDERS: ADMIT Psychiatry & Neurology Psychiatry; ATTEND Psychiatry & Neurology Psychiatry
DX: F32.2 Major depressive disorder, single episode, severe without psychotic features (principal); Z87.891 Personal history of nicotine dependence; Z81.8 Family history of other mental and behavioral disorders; Z72.89 Other problems related to lifestyle